=== PATIENT | male | born 1935 | race Caucasian/White ===

== ENCOUNTER 2018-06-19 14:02 | Inpatient (IN) ==
[2018-06-19] MEDS ORDERED: Ipratropium/Albuterol Neb 3 ML IH ONE (14:12)
[2018-06-19] MEDS ORDERED: methylPREDNISolone 125 MG/2 ML VIAL IVP ONE (14:12)
[2018-06-19] MEDS ORDERED: Azithromycin 250 MG TABLET PO ONE (14:21)
--- NOTE | 2018-06-19 14:21 | Emergency Department Note ---
Disposition Clinical Impression: Acute exacerbation of chronic obstructive airways disease, Elevated troponin Community acquired pneumonia Qualifiers: Laterality: unspecified laterality Qualified Code(s): J18.9 - Pneumonia, unspecified organism Disposition: Admitted As Inpatient Condition: Good Time of Disposition: 16:04 General Adult HPI - General Stated complaint: KEEGAN Time Seen by Provider: 06/19/18 14:05 Source: EMS Mode of arrival: ambulatory Limitations: no limitations Nursing Notes Reviewed: Yes Vital Signs Reviewed: Yes - History of Present Illness HPI Narrative: Patient reports 2 day history of increased cough and shortness of breath. Patient reports that he has been using his inhaler at home with no relief. He denies any fevers but does report occasional chills. He does have a history of COPD does not wear oxygen at home. EMS did provide patient with an albuterol treatment on the way in which he states did help with the shortness of breath. He denies any chest pain nausea vomiting or diarrhea. - Related Data Home Medications Medication Instructions Recorded Confirmed Albuterol Sulfate [Proair Hfa] 1 puff IH Q4-6H PRN 06/19/18 06/19/18 Chlorpheniramine/Dextromethorp 1 tab PO PER PKG DI PRN 06/19/18 06/19/18 [Coricidin Hbp Cough & Cold Tab] Cholecalciferol (D-3) [Vitamin D] 2,000 unit PO DAILY 06/19/18 06/19/18 Lisinopril [Zestril] 5 mg PO DAILY 06/19/18 06/19/18 Lovastatin [Mevacor] 20 mg PO DAILY 06/19/18 06/19/18 Meclizine HCl [Verticalm] 25 mg PO Q8H PRN 06/19/18 06/19/18 Multivitamin [One Daily 1 tab PO DAILY 06/19/18 06/19/18 Multivitamin] [place]-3 Fatty Acids/Fish Oil [Eql 1 cap PO DAILY 06/19/18 06/19/18 Fish Oil 1,200 mg Softgel] Allergies Allergy/AdvReac Type Severity Reaction Status Date / Time No Known Allergies Allergy Verified 10/24/15 07:21 All systems ED: reviewed and negative except as stated. Review of Systems: As Per HPI Constitutional: Denies: fever, chills ENT ED: Denies: congestion Cardiovascular: Denies: chest pain, palpitations, syncope Respiratory: Reports: cough, dyspnea, sputum production Gastrointestinal: Denies: abdominal pain, nausea, vomiting, diarrhea Neurological: Denies: weakness Past Medical History - Past Medical History Attestation: Yes The following information was validated with the patient. Source: patient Medical history: Reports: other (COPD) Physical Exam - General Limitations: no limitations General appearance: alert, in distress (Patient does appear to be short of breath. He is using his intercostal muscles to breathe.) - Head Head exam: atraumatic, normocephalic, normal inspection - Eye Eye exam: Present: normal appearance, PERRL, EOMI - ENT ENT exam: normal exam, normal oropharynx, mucous membranes moist - Neck Neck exam: Present: normal inspection, full ROM, trachea midline - Chest Chest inspection: Present: normal inspection, symmetric chest wall rise - Respiratory Respiratory exam: Present: respiratory distress, accessory muscle use, prolonged expiratory phase, other (Rhonchi throughout) - Cardiovascular Cardiovascular exam: Present: regular rate, normal rhythm, normal heart sounds - Abdominal Exam Abdominal exam: Present: soft, Non-Tender. Absent: tenderness, distention, guarding, rebound, rigidity - Extremities Exam Extremities exam: Present: normal inspection, full ROM, normal capillary refill. Absent: tenderness, pedal edema - Back Exam Back exam: Present: normal inspection, full ROM. Absent: tenderness - Neurological Exam Neurological exam: Present: alert, oriented X3 - Psychiatric Psychiatric exam: Present: normal affect, normal mood - Skin Skin exam: Present: warm, dry, intact, normal color Course Course Narrative: Patient presenting to the emergency department complaining of shortness of breath. Does have history of COPD. Does not wear oxygen at home. He is mentating appropriate but does appear to be in respiratory distress. Heart c rackles and rhonchi throughout. Chest x-ray was concerning for bilateral pneumonia. We will admit patient to the hospital on IV antibiotics for his pneumonia as well as COPD exacerbation. He was also given steroids while here. Vital Signs Pulse Rate 113 06/19/18 14:16 Respiratory Rate 22 06/19/18 14:16 Blood Pressure 150/84 06/19/18 14:16 O2 Sat by Pulse Oximetry 95 06/19/18 14:16 Temperature 98.9 F 06/19/18 14:20 Pulse Rate 113 06/19/18 14:20 Respiratory Rate 22 06/19/18 14:20 Blood Pressure 150/84 06/19/18 14:20 O2 Sat by Pulse Oximetry 95 06/19/18 15:03 Oxygen Delivery Oxygen Delivery Room Air Medical Decision Making - Medical Records Medical records reviewed: Yes I reviewed the patient's medical records. - Lab Data Lab results reviewed: Yes I reviewed the patient's lab results. Result diagrams: 06/19/18 14:12 06/19/18 14:12 Lab Results 06/19/18 06/19/18 06/19/18 Range/Units 14:12 14:12 14:12 WBC 18.3 H (4.3-11.1) K/mcL RBC 4.23 (4.19-5.50) M/mcL Hgb 13.8 (12.9-16.9) g/dL Hct 40.6 (37.5-50.1) % MCV 96.0 (83.0-100.0) fL MCH 32.6 (28.0-33.3) pg MCHC 34.0 (31.6-35.5) g/dL RDW 12.4 (11.5-14.5) % Plt Count 162 (140-400) K/mcL MPV 10.7 (9.4-12.4) fL Immature Gran % 0.9 (0-4) % Seg Neutrophils % 91.6 % Lymphocytes % 2.7 % Monocytes % 4.7 % Eosinophils % 0.0 % Basophils % 0.1 % Neutrophils # 16.8 H (1.6-8.9) K/mcL Lymphocytes # 0.5 L (0.6-4.6) K/mcL Monocytes # 0.9 (0.0-1.3) K/mcL Eosinophils # 0.0 (0.0-0.6) K/mcL Basophils # 0.0 (0.0-0.2) K/mcL PT (9.4-12.1) Seconds INR Sodium 137 (136-145) mEq/L Potassium 3.6 (3.5-5.1) mEq/L Chloride 103 (98-107) mEq/L Carbon Dioxide 22 L (23-29) mEq/L BUN 28 H (8-23) mg/dL Creatinine 1.31 H (0.70-1.30) mg/dL Est GFR ( Amer) > 60 (> 60) Est GFR (Non-Af Amer) 52 L (> 60) BUN/Creatinine Ratio 21 (6-26) Glucose 195 H (70-105) mg/dL Calculated Osmolality 295 (280-300) Lactic Acid (0.5-2.2) mmol/L Calcium 8.8 (8.6-10.3) mg/dL Troponin I 0.06 H* (< 0.04) ng/mL B-Natriuretic Peptide 372 H (Less than 100) pg/mL 06/19/18 06/19/18 Range/Units 14:21 14:37 WBC (4.3-11.1) K/mcL RBC (4.19-5.50) M/mcL Hgb (12.9-16.9) g/dL Hct (37.5-50.1) % MCV (83.0-100.0) fL MCH (28.0-33.3) pg MCHC (31.6-35.5) g/dL RDW (11.5-14.5) % Plt Count (140-400) K/mcL MPV (9.4-12.4) fL Immature Gran % (0-4) % Seg Neutrophils % % Lymphocytes % % Monocytes % % Eosinophils % % Basophils % % Neutrophils # (1.6-8.9) K/mcL Lymphocytes # (0.6-4.6) K/mcL Monocytes # (0.0-1.3) K/mcL Eosinophils # (0.0-0.6) K/mcL Basophils # (0.0-0.2) K/mcL PT 13.4 H (9.4-12.1) Seconds INR 1.2 Sodium (136-145) mEq/L Potassium (3.5-5.1) mEq/L Chloride (98-107) mEq/L Carbon Dioxide (23-29) mEq/L BUN (8-23) mg/dL Creatinine (0.70-1.30) mg/dL Est GFR ( Amer) (> 60) Est GFR (Non-Af Amer) (> 60) BUN/Creatinine Ratio (6-26) Glucose (70-105) mg/dL Calculated Osmolality (280-300) Lactic Acid 3.5 H (0.5-2.2) mmol/L Calcium (8.6-10.3) mg/dL Troponin I (< 0.04) ng/mL B-Natriuretic Peptide (Less than 100) pg/mL - Radiology Data Radiology results reviewed: Yes I reviewed the patient's radiology results. Chest X-Ray 06/19/18 14:12 IMPRESSION: Bilateral airspace changes, right worse than left, that are suspicious for infiltrates. Follow up to resolution is suggested. D/ / 06/19/2018 14:39:49 Светлана Guerrero MD / [facility] Interpreting Provider: Светлана Guerrero MD - EKG Data EKG #1 EKG attestation: Yes I reviewed and interpreted this EKG. EKG results narrative: Sinus tachycardia at a rate of 106. VA interval is 185. Castration is 135. QT is 355. QTC is 472. Does have occasional PVC noted. No significant change from previous EKG dated 05/10/2012. Does have a right bundle branch block. Critical Care Time Critical Care Time: Yes Total Critical Care Time: 35 Attestation: Medical care time 35 minutes managing patient's COPD exacerbation and pneumonia with elevated troponin. Attestation Statement - Attestation Attestation: Patient was seen with resident physician. I reviewed the history, physical, assessment and plan, and agree with the findings. I also personally evaluated this patient and had [id number] time with this patient. 83-year-old male presents emergency Department with worsening shortness of breath for the last 24-48 hours. Patient is a history of COPD, he does take breathing treatments at home. He says that the breathing is gotten particularly worse. He is not sure if he has had flu or please having COPD exacerbation or pneumonia. Denies fevers or chills. No chest pain. He is short of breath. With increased work of breathing. Review of systems as above remainder negative. Physical exam vital signs temperature tachycardia but the pulse ox is 95% on room air. ENT is unremarkable. Heart regular rhythm and rate. Lungs diffuse crackles and wheezing heard throughout with increased work of breathing and rapid rate. Abdomen is soft and nontender. Extremities are unremarkable. Neurologically intact. Skin no rashes. Psych normal. ED course. We will do 3 breathing treatments and some steroids. We will also do workup for cardiopulmonary issues. Because of the initial presentation and increased work of breathing anticipate we will need to admit this patient for additional evaluation and treatment. I once we have the results of the lab testing we can contact hospitalist service and arrange for admission. Patient's chest x-ray demonstrated bilateral pneumonia. Labs showed elevated white blood cell count slightly elevated troponin and BNP. Patient was started on IV antibiotics, he did have improved breathing throughout his stay. We contacted the hospitalist service to arrange for admission. I agree with the resident physician assessment and plan. The patient remained hemodynamically stable while in the emergency department.
[2018-06-19 14:58] LABS: Basophils % 0.1 %; Hematocrit 40.6 % (37.5-50.1); Hemoglobin 13.8 g/dL (12.9-16.9); Immature Granulocytes % 0.9 % (0-4); Lymphocytes # 0.5 K/mcL (0.6-4.6); Lymphocytes % 2.7 %; Mean Corpuscular Hemoglobin 32.6 pg (28.0-33.3); Mean Platelet Volume 10.7 fL (9.4-12.4); Monocytes # 0.9 K/mcL (0.0-1.3); Monocytes % 4.7 %; Neutrophils # 16.8 K/mcL (1.6-8.9); Platelet Count 162 K/mcL (140-400); Red Blood Count 4.23 M/mcL (4.19-5.50); Red Cell Distribution Width 12.4 % (11.5-14.5); Segmented Neutrophils % 91.6 %
[2018-06-19 15:08] LABS: INR 1.2; Prothrombin Time 13.4 Seconds (9.4-12.1)
[2018-06-19 15:19] LABS: BUN/Creatinine Ratio 21 (6-26); Blood Urea Nitrogen 28 mg/dL (8-23); Calcium 8.8 mg/dL (8.6-10.3); Carbon Dioxide 22 mEq/L (23-29); Chloride 103 mEq/L (98-107); Glucose 195 mg/dL (70-105); Osmolality,Calculated 295 (280-300); Potassium 3.6 mEq/L (3.5-5.1); Sodium 137 mEq/L (136-145); eGFR For Non-African Americans 52 (> 60)
[2018-06-19 15:26] LABS: Troponin I 0.06 ng/mL (< 0.04)
[2018-06-19] MEDS ORDERED: Naloxone 0.4 MG/ML INJ IVP PRN (15:27)
[2018-06-19] MEDS ORDERED: cefTRIAXone 1,000 MG in Water for inj. (sterile) 20 ML 10 ML IVP ONE (15:29)
[2018-06-19] MEDS ORDERED: 0.9 % Sodium Chloride 1,000 ML IVC SCH ×3 (15:30→20:45)
[2018-06-19] MEDS: Ipratropium/Albuterol Neb 3 ML IH SCH ×3 (15:45→23:07)
--- NOTE | 2018-06-19 16:03 | Internal Med History&Physical ---
Date of Encounter: 06/19/18 Time of Encounter: 15:30 Internal Medicine - H&P: HPI Chief complaint: SOB Admitted From: Home History of present illness: Mr. Guthrie is a 83 year old male with past medical history of COPD (PFT 09/2015 FEV1 42%), HTN, HLD, presented to the ED with 4 day history of shortness of breath. Associated cough with whitish sputum production and chills. Denies any chest pain, palpitation, orthopnea, PND, LE swelling. Was sick with flu-like symptoms for 3-4 days prior to the onset of productive cough and SOB. No fever but chills reported as above. Denies any abdominal pain, diarrhea, dysuria, joint pain, or rash. Up-to-date on both flu shot and pneumonia vaccinations. In the ED, he was afebrile, tachycardic 113 but with normal BP. Saturating well on RA. Labs showed leukocytosis and lactic acid of 3.5. Troponin 0.06, EKG sinus tachycardia without STT changes. Cr 1.31 (baseline 1.25). Chest x-ray revealed bilateral airspace changes R>L concerning for PNA. Patient was given oral Zithromax, IV Solu-Medrol, bronchodilators, and admitted for further management. Past Med Surg Social Fam HX - Past Medical History Medical history: COPD, hyperlipidemia, hypertension, kidney stones, other Additional medical history: BPH Psychiatric history: no psych history - Past Surgical History Additional surgical history: laser surgery on prostate - Social History Smoking Status: Former smoker Smokeless Tobacco Status: No Alcohol use: none Drug use: none - Family History Mother History Unknown: Yes Living Status: Father History Unknown: Yes Living Status: Internal Medicine - H&P: Meds Albuterol Sulfate [Proair Hfa] 1 puff IH Q4-6H PRN 06/19/18 [History] Chlorpheniramine/Dextromethorp [Coricidin Hbp Cough & Cold Tab] 1 tab PO PER PKG DI PRN 06/19/18 [History] Cholecalciferol (D-3) [Vitamin D] 2,000 unit PO DAILY 06/19/18 [History] Lisinopril [Zestril] 5 mg PO DAILY 06/19/18 [History] Lovastatin [Mevacor] 20 mg PO DAILY 06/19/18 [History] Meclizine HCl [Verticalm] 25 mg PO Q8H PRN 06/19/18 [History] Multivitamin [One Daily Multivitamin] 1 tab PO DAILY 06/19/18 [History] [place]-3 Fatty Acids/Fish Oil [Eql Fish Oil 1,200 mg Softgel] 1 cap PO DAILY 06/19/18 [History] Allergy/AdvReac Type Severity Reaction Status Date / Time No Known Allergies Allergy Verified 10/24/15 07:21 All Systems PM: A 10-system review of systems was performed and is negative for pertinent findings except as documented above in the HPI. - Constitutional Vitals: Temp Pulse Resp BP Pulse Ox 98.9 F 113 22 150/84 95 06/19/18 14:20 06/19/18 14:20 06/19/18 14:20 06/19/18 14:20 06/19/18 15:03 Exam: General: Alert and oriented, mild respiratory distress. HEENT:EOM, pupils equal, round and reactive. Cardiovascular:Normal S1 & S2, No JVD. Pulse regular but tachycardic. No LE edema Lungs: Scattered rhonchi/wheezes bilaterally Abdomen:Soft, non-tender, no rigidity. Extremities:No deformity or swelling Neurological:Normal cognition and motor skills. Non-focal Skin:Normal color, no rash, no lesions. Pulses:Carotid and radial pulses normal +2. Rest of the physical exam is non contributory Internal Med - H&P Results - Labs CBC & Chem 7: 06/19/18 14:12 06/19/18 14:12 Labs: Short CBC 06/19/18 Range/Units 14:12 WBC 18.3 H (4.3-11.1) K/mcL Hgb 13.8 (12.9-16.9) g/dL Hct 40.6 (37.5-50.1) % Plt Count 162 (140-400) K/mcL Neutrophils # 16.8 H (1.6-8.9) K/mcL BMP 06/19/18 14:12 Sodium 137 Potassium 3.6 Chloride 103 Carbon Dioxide 22 L BUN 28 H Creatinine 1.31 H Glucose 195 H Calcium 8.8 Cardiac Enzymes 06/19/18 Range/Units 14:12 Troponin I 0.06 H* (< 0.04) ng/mL - Impressions ITS Impressions Chest X-Ray 06/19/18 14:12 IMPRESSION: Bilateral airspace changes, right worse than left, that are suspicious for infiltrates. Follow up to resolution is suggested. D/ / 06/19/2018 14:39:49 Светлана Guerrero MD / [facility] Interpreting Provider: Светлана Guerrero MD - Assessment and plan (1) Sepsis Current Visit: Yes Status: Suspected Assessment and plan: tachycardic, tachypneic on presentation. Also has leukocytosis. 3/4 SIRS source: PNA, lactic acid 3.5 was given PO Azithromycin in the ED, will add IV Rocephin blood cultures prior to abx 1L fluid bolus, repeat lactic acid after IVF Qualifiers: Sepsis type: sepsis due to unspecified organism Qualified Code(s): A41.9 - Sepsis, unspecified organism (2) Community acquired pneumonia Current Visit: Yes Status: Acute Assessment and plan: in addition to the findings above, CXR shows bilateral airspace opacities R>L abx as above sputum culture urine legionella/strep ag bronchodilators Qualifiers: Laterality: unspecified laterality Qualified Code(s): J18.9 - Pneumonia, unspecified organism (3) Troponin level elevated Current Visit: Yes Status: Acute Assessment and plan: Likely to demand ischemia in the absence of anginal symptoms or ischemic changes on EKG troponin 0.06, trend continue ASA, statin check a1c, lipid panel echocardiogram (4) COPD exacerbation Current Visit: Yes Status: Acute Assessment and plan: severe COPD per PFT in 2016 steroids, bronchodilators abx as above may need to have ICS at the time of discharge (5) HTN (hypertension) Current Visit: Yes Status: Chronic Assessment and plan: hold off on lisinopril given suspected sepsis Qualifiers: Hypertension type: essential hypertension Qualified Code(s): I10 - Essential (primary) hypertension (6) DVT prophylaxis Current Visit: Yes Status: Acute Assessment and plan: SQ heparin - Time Spent With Patient Total time spent is greater than 50% in coordination of care (as documented) at patient's floor/unit and/or counseling patient: Greater than 35 minutes
[2018-06-19] MEDS ORDERED: Aspirin 81 MG TAB.CHEW PO ONE (16:11)
[2018-06-19] MEDS: 0.9 % Sodium Chloride 1,000 ML IVC SCH (18:04)
[2018-06-19] MEDS: *HR* Heparin 5,000 UNIT/ML VIAL SQ SCH (18:04)
[2018-06-19] MEDS ORDERED: 0.9 % Sodium Chloride 1,000 ML IVC ONE (21:20)
[2018-06-19 21:53] LABS: ABG Base Excess -7 mEq/L (-2 to 3); ABG HCO3 16 mEq/L (21-27); ABG Oxygen Saturation 95 % (95-98); ABG PCO2 27 mmHg (35-45); ABG PH 7.39 pH Units (7.32-7.45); ABG PO2 73 mmHg (85-104); ABG TCO2 17 mEq/L (20-26)
[2018-06-19 22:01] LABS: Adenovirus Not Detected (Not Detect); Bordetella Pertussis Not Detected (Not Detect); Chlamydophila pneumoniae Not Detected (Not Detect); Coronavirus 229E Not Detected (Not Detect); Coronavirus HKU1 Not Detected (Not Detect); Coronavirus NL63 Not Detected (Not Detect); Coronavirus OC43 Not Detected (Not Detect); Human Metapneumovirus Not Detected (Not Detect); Human Rhinovirus/Enterovirus DETECTED (Not Detect); Influenza A Subtype 2009 H1 Not Detected (Not Detect); Influenza A Untypeable Not Detected (Not Detect); Influenza B Not Detected (Not Detect); Mycoplasma pneumoniae Not Detected (Not Detect); Parainfluenza Virus 1 Not Detected (Not Detect); Parainfluenza Virus 2 Not Detected (Not Detect); Parainfluenza Virus 3 Not Detected (Not Detect); Parainfluenza Virus 4 Not Detected (Not Detect); Respiratory Syncytial Virus Not Detected (Not Detect)
[2018-06-20] MEDS: 0.9 % Sodium Chloride 1,000 ML IVC SCH (02:21)
[2018-06-20] MEDS: Ipratropium/Albuterol Neb 3 ML IH SCH ×5 (03:55→20:04)
[2018-06-20 05:45] LABS: Basophils % 0.1 %; Hematocrit 32.7 % (37.5-50.1); Immature Granulocytes % 1.1 % (0-4); Lymphocytes # 0.4 K/mcL (0.6-4.6); Lymphocytes % 2.7 %; Mean Corpuscular HGB Conc 35.2 g/dL (31.6-35.5); Mean Corpuscular Hemoglobin 33.2 pg (28.0-33.3); Mean Corpuscular Volume 94.5 fL (83.0-100.0); Mean Platelet Volume 10.8 fL (9.4-12.4); Monocytes # 0.6 K/mcL (0.0-1.3); Neutrophils # 13.4 K/mcL (1.6-8.9); Platelet Count 136 K/mcL (140-400); Red Blood Count 3.46 M/mcL (4.19-5.50); Red Cell Distribution Width 12.6 % (11.5-14.5); Segmented Neutrophils % 92.1 %
[2018-06-20] MEDS: *HR* Heparin 5,000 UNIT/ML VIAL SQ SCH ×2 (05:45→18:27)
[2018-06-20 05:47] LABS: Hemoglobin 11.5 g/dL (12.9-16.9)
[2018-06-20 06:03] LABS: BUN/Creatinine Ratio 21 (6-26); Blood Urea Nitrogen 21 mg/dL (8-23); Calcium 8.3 mg/dL (8.6-10.3); Carbon Dioxide 20 mEq/L (23-29); Chloride 110 mEq/L (98-107); Glucose 197 mg/dL (70-105); Magnesium 1.9 mg/dL (1.6-2.6); Osmolality,Calculated 294 (280-300); Potassium 3.2 mEq/L (3.5-5.1); Sodium 138 mEq/L (136-145); eGFR For Non-African Americans > 60 (> 60)
[2018-06-20 06:45] LABS: Estimated Average Glucose 123 mg/dl; Hemoglobin A1C 5.9 %
[2018-06-20] MEDS: MethylPREDNISolone 40 MG/ML VIAL IVP SCH ×2 (08:44→16:36)
[2018-06-20] MEDS: Cholecalciferol (D-3) 1,000 UNIT TABLET PO SCH (08:44)
[2018-06-20] MEDS: Aspirin Enteric Coated 81 MG Tablet PO SCH (08:44)
--- NOTE | 2018-06-20 12:16 | Internal Med Progress Note ---
Hospitalist Progress Note - Encounter Date of Encounter: 06/20/18 Time of Encounter: 10:00 - Subjective Interval History: Overnight event noted. Lactic acid initially went up as high as 4.7 but normalized this AM with additional fluid boluses. States that his SOB also improved. HR normalized and remained afebrile. - Exam Vitals: Temp Pulse Resp BP Pulse Ox 97.4 F L 92 16 125/70 92 06/20/18 11:02 06/20/18 11:02 06/20/18 11:02 06/20/18 11:02 06/20/18 11:02 Exam: General: Alert and oriented, not in distress Cardiovascular:Normal S1 & S2, No JVD. Pulse regular, normal rate. No LE edema Lungs: improving rhonchi/wheezes bilaterally Abdomen:Soft, non-tender, no rigidity. Extremities:No deformity or swelling Neurological:Normal cognition and motor skills. Non-focal - Assessment and Plan (1) Sepsis Current Visit: Yes Status: Suspected Assessment and Plan: tachycardic, tachypneic on presentation. Also has leukocytosis. 3/4 SIRS source: PNA, lactic acid 3.5 -> normalized after fluid resuscitation continue IV Vimal/azithromax, D2. WBC improving follow up on blood cultures (2) Community acquired pneumonia Current Visit: Yes Status: Acute Assessment and Plan: in addition to the findings above, CXR shows bilateral airspace opacities R>L abx as above RIP +ve for entero/rhinovirus urine legionella/strep ag -ve, flu -ve sputum culture pending bronchodilators (3) COPD exacerbation Current Visit: Yes Status: Acute Assessment and Plan: severe COPD per PFT in 2016 steroids, bronchodilators abx as above may need to have ICS at the time of discharge (4) Troponin level elevated Current Visit: Yes Status: Acute Assessment and Plan: Likely to demand ischemia in the absence of anginal symptoms or ischemic changes on EKG troponin 0.06-> 0.05 continue ASA, statin a1c 5.9, lipid panel unremarkable echo showed normal EF and wall motion (5) HTN (hypertension) Current Visit: Yes Status: Chronic Assessment and Plan: hold off on lisinopril given suspected sepsis and normal BP (6) DVT prophylaxis Current Visit: Yes Status: Acute Assessment and Plan: SQ heparin - Time Spent with Patient Total time spent is greater than 50% in coordination of care (as documented) at patient's floor/unit and/or counseling patient: Plan of Care Discussed with: patient Internal Medicine: Result - Labs CBC & Chem 7: 06/20/18 05:00 06/20/18 05:00 Labs: Short CBC 06/19/18 06/20/18 Range/Units 14:12 05:00 WBC 18.3 H 14.6 H (4.3-11.1) K/mcL Hgb 13.8 11.5 L D (12.9-16.9) g/dL Hct 40.6 32.7 L (37.5-50.1) % Plt Count 162 136 L (140-400) K/mcL Neutrophils # 16.8 H 13.4 H (1.6-8.9) K/mcL BMP 06/19/18 06/20/18 14:12 05:00 Sodium 137 138 Potassium 3.6 3.2 L Chloride 103 110 H Carbon Dioxide 22 L 20 L BUN 28 H 21 Creatinine 1.31 H 1.01 Glucose 195 H 197 H Calcium 8.8 8.3 L Cardiac Enzymes 06/19/18 06/19/18 Range/Units 14:12 20:09 Troponin I 0.06 H* 0.05 H* (< 0.04) ng/mL - ABG Interpretation ABG results: ABG ABG pH 7.39 pH Units (7.32-7.45) 06/19/18 21:50 ABG pCO2 27 mmHg (35-45) L 06/19/18 21:50 ABG pO2 73 mmHg (85-104) L 06/19/18 21:50 ABG O2 Saturation 95 % (95-98) 06/19/18 21:50 PT/INR, D-dimer PT 13.4 Seconds (9.4-12.1) H 06/19/18 14:21 - Impressions Impressions Chest X-Ray 06/19/18 14:12 IMPRESSION: Bilateral airspace changes, right worse than left, that are suspicious for infiltrates. Follow up to resolution is suggested. D/ / 06/19/2018 14:39:49 [facility]лан[facility] Inter[facility] Provider: Светлана Guerrero MD Echocardiogram 06/20/18 07:00 Impressions: LVEF 60-65%. Normal LV chamber size, wall thickness and systolic function. Indeterminate diastolic function. Normal right ventricular structure and function. No significant valvular dysfunction. Mild pulmonary hypertension. The aortic root is mildly dilated. Cannot rule out aneurysm of sinus of Valsalva due to suboptimal Echo windows. Consider IVY if clinically indicated. Left Ventricular Wall Motion: Rest Echo Findings All wall segments showed normal motion. Findings: Study Quality * Technically sub-optimal due to poor echocardiographic windows. ECG Findings * Normal sinus rhythm. Left Ventricle * LVEF 60-65%. * Normal LV chamber size, wall thickness and systolic function. * Indeterminate diastolic function. * Definity echo contrast was not used. Right Ventricle * Normal right ventricular structure and function. Left Atrium * Normal left atrial size. Right Atrium * Normal right atrial size. Interatrial Septum * Interatrial septum not well evaluated. Aortic Valve * Aortic valve not well visualized. * No aortic stenosis. * No aortic regurgitation. Mitral Valve * Mildly calcified mitral valve leaflets. * No mitral stenosis. * No mitral regurgitation. Tricuspid Valve * Tricuspid valve not well visualized. * No tricuspid stenosis. * Estimated RVSP is 46 mmHg. * Estimated RA pressure is 8 mmHg. * Mild pulmonary hypertension. Pulmonic Valve * Pulmonic valve is not well visualized. * No pulmonic stenosis. * No pulmonic regurgitation. Aorta * The aortic root is mildly dilated. Cannot rule out aneurysm of sinus of valsalva of non-coronary cusp. * The aortic root is 4.1 cm. Pericardium * The pericardium appears normal. IVC * Normal IVC dimensions and inspiratory collapse. Consult Discharge Plan - Plan Referrals: Sampson Montoya MD [Primary Care Provider] - 06/24/18 1:15 pm (1) Sepsis Qualifiers: Sepsis type: sepsis due to unspecified organism Qualified Code(s): A41.9 - Sepsis, unspecified organism (2) Community acquired pneumonia Qualifiers: Laterality: unspecified laterality Qualified Code(s): J18.9 - Pneumonia, unspecified organism (5) HTN (hypertension) Qualifiers: Hypertension type: essential hypertension Qualified Code(s): I10 - Essential (primary) hypertension
[2018-06-20] MEDS: Azithromycin 500 MG in D5% in Water 250 ML IVPB SCH (14:52)
[2018-06-20] MEDS: Potassium Chloride Elixir 20 MEQ/15 ML UDC PO SCH ×3 (15:56→20:38)
[2018-06-20] MEDS: cefTRIAXone 1,000 MG in Water for inj. (sterile) 20 ML 10 ML IVP SCH (17:48)
[2018-06-20] MEDS ORDERED: Potassium Chloride Elixir 20 MEQ/15 ML UDC PO SCH (21:45)
[2018-06-21] MEDS: Ipratropium/Albuterol Neb 3 ML IH SCH ×7 (00:25→23:25)
[2018-06-21] MEDS: MethylPREDNISolone 40 MG/ML VIAL IVP SCH ×2 (06:00→18:25)
[2018-06-21] MEDS: *HR* Heparin 5,000 UNIT/ML VIAL SQ SCH ×2 (06:05→18:25)
[2018-06-21] MEDS: Aspirin Enteric Coated 81 MG Tablet PO SCH (10:23)
[2018-06-21] MEDS: cefTRIAXone 1,000 MG in Water for inj. (sterile) 20 ML 10 ML IVP SCH (10:23)
[2018-06-21] MEDS: Cholecalciferol (D-3) 1,000 UNIT TABLET PO SCH (10:23)
--- NOTE | 2018-06-21 10:38 | Internal Med Progress Note ---
Hospitalist Progress Note - Encounter Date of Encounter: 06/21/18 Time of Encounter: 10:35 - Subjective Interval History: Seen and examined at bedside today. Continue to have dyspnea with exertion and wheezing. Was noted to have difficulty ambulating around the room without O2, SPO2 dropped to 88% and his dyspnea worsened. High risk for d/c at this time. Continue to monitor over night. - Exam Vitals: Temp Pulse Resp BP Pulse Ox 97.9 F 97 16 150/75 92 06/21/18 07:01 06/21/18 07:01 06/21/18 07:01 06/21/18 07:01 06/21/18 07:01 Exam: General: Alert and oriented, not in distress at rest Cardiovascular:Normal S1 & S2, No JVD. Pulse regular, normal rate. No LE edema Lungs: persistent B/L expiratory wheezing with dimished breath sounds throughout Abdomen:Soft, non-tender, no rigidity. Extremities:No deformity or swelling Neurological:Normal cognition and motor skills. Non-focal - Assessment and Plan (1) Sepsis Current Visit: Yes Status: Suspected Assessment and Plan: tachycardic, tachypneic on presentation. Also has leukocytosis. 3/4 SIRS source: PNA, lactic acid 3.5 -> normalized after fluid resuscitation continue IV Vimal/azithromax, D2. WBC improving follow up on blood cultures 06/21--Sepsis 2/2 viral PNA. Positive for Rhino virus. Clinically, he remains stable, no fevers over night. During my assessment he was noted to have dyspnea with exertion and hypoxia with SPO2 of 88% with ambulation without O2. I do not believe that he would be safe for d/c today. Continue IV ABX, aerosols and IV steroids (2) Community acquired pneumonia Current Visit: Yes Status: Acute Assessment and Plan: in addition to the findings above, CXR shows bilateral airspace opacities R>L abx as above RIP +ve for entero/rhinovirus urine legionella/strep ag -ve, flu -ve sputum culture preliminary GNR continue plan as above (3) COPD exacerbation Current Visit: Yes Status: Acute Assessment and Plan: severe COPD per PFT in 2016 continue steroids, bronchodilators abx as above may need to have ICS at the time of discharge not ready for d/c today d/t hypoxia and dyspnea with exertion attempt to quality for home O2 (4) HTN (hypertension) Current Visit: Yes Status: Chronic Assessment and Plan: HTN this a.m resume home dose AKIKO I (5) Troponin level elevated Current Visit: Yes Status: Acute Assessment and Plan: Likely to demand ischemia in the absence of anginal symptoms or ischemic changes on EKG troponin 0.06-> 0.05 continue ASA, statin a1c 5.9, lipid panel unremarkable echo showed normal EF and wall motion 06/21--remains CP free, no events on tele (6) DVT prophylaxis Current Visit: Yes Status: Acute Assessment and Plan: Continue SQ heparin - Time Spent with Patient Total time spent is greater than 50% in coordination of care (as documented) at patient's floor/unit and/or counseling patient: less than 15 minutes Plan of Care Discussed with: patient Internal Medicine: Result - Labs CBC & Chem 7: 06/20/18 05:00 06/20/18 05:00 - ABG Interpretation ABG results: ABG ABG pH 7.39 pH Units (7.32-7.45) 06/19/18 21:50 ABG pCO2 27 mmHg (35-45) L 06/19/18 21:50 ABG pO2 73 mmHg (85-104) L 06/19/18 21:50 ABG O2 Saturation 95 % (95-98) 06/19/18 21:50 PT/INR, D-dimer PT 13.4 Seconds (9.4-12.1) H 06/19/18 14:21 - Impressions Impressions Echocardiogram 06/20/18 07:00 Impressions: LVEF 60-65%. Normal LV chamber size, wall thickness and systolic function. Indeterminate diastolic function. Normal right ventricular structure and function. No significant valvular dysfunction. Mild pulmonary hypertension. The aortic root is mildly dilated. Cannot rule out aneurysm of sinus of Valsalva due to suboptimal Echo windows. Consider IVY if clinically indicated. Left Ventricular Wall Motion: Rest Echo Findings All wall segments showed normal motion. Findings: Study Quality * Technically sub-optimal due to poor echocardiographic windows. ECG Findings * Normal sinus rhythm. Left Ventricle * LVEF 60-65%. * Normal LV chamber size, wall thickness and systolic function. * Indeterminate diastolic function. * Definity echo contrast was not used. Right Ventricle * Normal right ventricular structure and function. Left Atrium * Normal left atrial size. Right Atrium * Normal right atrial size. Interatrial Septum * Interatrial septum not well evaluated. Aortic Valve * Aortic valve not well visualized. * No aortic stenosis. * No aortic regurgitation. Mitral Valve * Mildly calcified mitral valve leaflets. * No mitral stenosis. * No mitral regurgitation. Tricuspid Valve * Tricuspid valve not well visualized. * No tricuspid stenosis. * Estimated RVSP is 46 mmHg. * Estimated RA pressure is 8 mmHg. * Mild pulmonary hypertension. Pulmonic Valve * Pulmonic valve is not well visualized. * No pulmonic stenosis. * No pulmonic regurgitation. Aorta * The aortic root is mildly dilated. Cannot rule out aneurysm of sinus of valsalva of non-coronary cusp. * The aortic root is 4.1 cm. Pericardium * The pericardium appears normal. IVC * Normal IVC dimensions and inspiratory collapse. Consult Discharge Plan - Plan Referrals: Sampson Montoya MD [Primary Care Provider] - 06/24/18 1:15 pm (1) Sepsis Qualifiers: Sepsis type: sepsis due to unspecified organism Qualified Code(s): A41.9 - S epsis, unspecified organism (2) Community acquired pneumonia Qualifiers: Laterality: unspecified laterality Qualified Code(s): J18.9 - Pneumonia, unspecified organism (4) HTN (hypertension) Qualifiers: Hypertension type: essential hypertension Qualified Code(s): I10 - Essential (primary) hypertension
[2018-06-21 11:14] LABS: Mean Corpuscular HGB Conc 33.8 g/dL (31.6-35.5); Mean Corpuscular Hemoglobin 32.6 pg (28.0-33.3); Mean Corpuscular Volume 96.3 fL (83.0-100.0); Mean Platelet Volume 10.6 fL (9.4-12.4); Platelet Count 187 K/mcL (140-400); Red Blood Count 4.05 M/mcL (4.19-5.50); Red Cell Distribution Width 12.7 % (11.5-14.5)
[2018-06-21 11:22] LABS: Hemoglobin 13.2 g/dL (12.9-16.9)
[2018-06-21 11:38] LABS: BUN/Creatinine Ratio 22 (6-26); Blood Urea Nitrogen 22 mg/dL (8-23); Calcium 9.1 mg/dL (8.6-10.3); Carbon Dioxide 20 mEq/L (23-29); Chloride 110 mEq/L (98-107); Glucose 216 mg/dL (70-105); Osmolality,Calculated 300 (280-300); Potassium 4.2 mEq/L (3.5-5.1); Sodium 140 mEq/L (136-145); eGFR For Non-African Americans > 60 (> 60)
[2018-06-21] MEDS: Azithromycin 500 MG in D5% in Water 250 ML IVPB SCH (15:05)
[2018-06-22] MEDS: Ipratropium/Albuterol Neb 3 ML IH SCH ×3 (03:56→11:36)
[2018-06-22 05:35] LABS: Hematocrit 36.5 % (37.5-50.1); Hemoglobin 12.7 g/dL (12.9-16.9); Mean Corpuscular HGB Conc 34.8 g/dL (31.6-35.5); Mean Corpuscular Hemoglobin 32.6 pg (28.0-33.3); Mean Corpuscular Volume 93.6 fL (83.0-100.0); Mean Platelet Volume 10.8 fL (9.4-12.4); Platelet Count 188 K/mcL (140-400)
[2018-06-22 05:54] LABS: BUN/Creatinine Ratio 24 (6-26); Blood Urea Nitrogen 25 mg/dL (8-23); Calcium 9.5 mg/dL (8.6-10.3); Carbon Dioxide 24 mEq/L (23-29); Chloride 107 mEq/L (98-107); Glucose 179 mg/dL (70-105); Osmolality,Calculated 297 (280-300); Sodium 139 mEq/L (136-145); eGFR For Non-African Americans > 60 (> 60)
[2018-06-22] MEDS: *HR* Heparin 5,000 UNIT/ML VIAL SQ SCH (06:33)
[2018-06-22] MEDS: MethylPREDNISolone 40 MG/ML VIAL IVP SCH (06:33)
[2018-06-22 07:00] VITALS: BP 143/78
[2018-06-22] MEDS: Aspirin Enteric Coated 81 MG Tablet PO SCH (09:07)
[2018-06-22] MEDS: Cholecalciferol (D-3) 1,000 UNIT TABLET PO SCH (09:07)
[2018-06-22] MEDS: cefTRIAXone 1,000 MG in Water for inj. (sterile) 20 ML 10 ML IVP SCH (09:07)
--- NOTE | 2018-06-22 10:23 | Discharge Summary ---
- NOTES TO OUTPATIENT PROVIDER Notes to Outpatient Provider: BASIC OUTPATIENT F/U Orders not resulted at time of discharge: Pending orders 06/19/18 15:57 Culture,Blood [] Stat 06/19/18 21:55 Sputum Culture [Culture,Sputum with Gram Stain] [] Stat Date of Encounter: 06/22/18 Time of Encounter: 10:20 - Discharge Diagnosis (1) Sepsis Priority: Primary Status: Suspected Qualifiers: Sepsis type: sepsis due to unspecified organism Qualified Code(s): A41.9 - Sepsis, unspecified organism (2) Community acquired pneumonia Priority: Secondary Status: Acute Qualifiers: Laterality: unspecified laterality Qualified Code(s): J18.9 - Pneumonia, unspecified organism (3) COPD exacerbation Priority: Secondary Status: Acute (4) HTN (hypertension) Priority: Secondary Status: Chronic Qualifiers: Hypertension type: essential hypertension Qualified Code(s): I10 - Essential (primary) hypertension (5) Troponin level elevated Priority: Secondary Status: Acute (6) DVT prophylaxis Priority: Secondary Status: Acute Hospital course: Mr. Guthrie is a 83 year old male was admitted and treated for community- acquired pneumonia with positive rhinovirus. Additionally, sputum cultures with preliminary gram-negative rods with scant amount. Initially the patient presented with sepsis including tachycardia, tachypnea and leukocytosis as well as elevated lactic acid. Throughout stay has been receiving azithromycin and ceftriaxone as well as steroids and respiratory status has improved. He is qualified for home O2 and was able to ambulate down the hallway earlier this morning with little difficulty. Being discharged today with 70 course of Keflex and oral steroids and being sent home. He has been instructed to continue antibiotics until course is finished and continue with supportive care. The patient is very adamant about discharge and is willing to go home today. He reports that he does not have a long distance ambulation home and his daughter is at bedside reports she will be with him [id number] to assist in caring for him. He has been instructed to follow-up with PCP within 1 week of discharge. Discharge discussed with: patient, family, nurse - Time Spent with Patient Total time spent providing and/or coordinating discharge services: Less than 30 minutes - Discharge Medications Prescriptions: cephALEXin [Keflex] 500 mg PO BID 7 Days #14 capsule predniSONE [PredniSONE] 40 mg PO DAILY 5 Days #10 tablet Home Medications: Albuterol Sulfate [Proair Hfa] 1 puff IH Q4-6H PRN 06/19/18 [History] Chlorpheniramine/Dextromethorp [Coricidin Hbp Cough & Cold Tab] 1 tab PO PER PKG DI PRN 06/19/18 [History] Cholecalciferol (D-3) [Vitamin D] 2,000 unit PO DAILY 06/19/18 [History] Lisinopril [Zestril] 5 mg PO DAILY 06/19/18 [History] Lovastatin [Mevacor] 20 mg PO DAILY 06/19/18 [History] Meclizine HCl [Verticalm] 25 mg PO Q8H PRN 06/19/18 [History] Multivitamin [One Daily Multivitamin] 1 tab PO DAILY 06/19/18 [History] [place]-3 Fatty Acids/Fish Oil [Eql Fish Oil 1,200 mg Softgel] 1 cap PO DAILY 06/19/18 [History] cephALEXin [Keflex] 500 mg PO BID 7 Days #14 capsule 06/22/18 [Rx] predniSONE [PredniSONE] 40 mg PO DAILY 5 Days #10 tablet 06/22/18 [Rx] Allergies/Adverse Reactions: Allergy/AdvReac Type Severity Reaction Status Date / Time No Known Allergies Allergy Verified 10/24/15 07:21 Date of admission: 06/20/18 17:20 Primary care physician: Sampson Montoya MD Consults: 06/19/18 15:28 Consult to Occupational Therapy [CONS] Routine Comment: Evaluate, develop and implement POC Reason for Consult: PNA, deconditioning Does patient have active BEDREST order?: No Is patient medically & hemodynamically stable?: Yes Consult to Physical Therapy [CONS] Routine Comment: Evaluate, develop and implement POC Reason for Consult: PNA, deconditioning Does patient have active BEDREST order?: No Is patient medically & hemodynamically stable?: Yes 06/19/18 21:19 Consult to Respiratory Therapy [CONS] Routine Reason for Consult: Please add flutter valve to patient's breathing txs Call Completed: Yes Discharging clinician: Rome Samuels Anticipated date of discharge: 06/22/18 - Constitutional Vitals: Temp Pulse Resp BP Pulse Ox 97.9 F 90 16 143/78 95 06/22/18 06:59 06/22/18 06:59 06/22/18 07:41 06/22/18 06:59 06/22/18 07:41 General appearance: Present: A&O X 3 Exam: General: Alert and oriented, not in distress at rest Cardiovascular:Normal S1 & S2, No JVD. Pulse regular, normal rate. No LE edema Lungs: persistent no longer having expiratory wheezing, clear/diminished breath sounds, Abdomen:Soft, non-tender, no rigidity. Extremities:No deformity or swelling Neurological:Normal cognition and motor skills. Non-focal - Patient Status Disposition: Home, Self-Care Condition: Good Functional capacity at discharge: independent ambulation Overall status at discharge: patient is not back to baseline - Discharge Instructions Instructions: Chronic Obstructive Pulmonary Disease (DC), Pneumonia (DC) Follow Up With: Sampson Montoya MD [Primary Care Provider] - 06/24/18 1:15 pm Forms: ED Satisfaction Letter Additional Instructions: Call [facility] when you get home to have your equipment delivered. [phone] - Diet and Activity Activity: increase activity as tolerated, resume usual activities as tolerated, wear oxygen at all times Diet: diabetic diet, low fat, low cholesterol, low salt diet
--- NOTE | 2018-06-22 12:41 | Physician Discharge Referral ---
Addendum entered and electronically signed by Rome Samuels 06/23/18 08:36: Addendum entered and electronically signed by Rome Samuels 06/22/18 14:18: Update patient needs PT/OT and nursing Original Note: Home Health/Hosp Referral Info Transfer to: Home Health Provider in Charge Post Discharge: PCP - Diagnosis (1) Sepsis Priority: Primary Status: Suspected (2) Community acquired pneumonia Priority: Secondary Status: Acute (3) COPD exacerbation Priority: Secondary Status: Acute (4) HTN (hypertension) Priority: Secondary Status: Chronic (5) Troponin level elevated Priority: Secondary Status: Acute (6) DVT prophylaxis Priority: Secondary Status: Acute - Respiratory Orders Smoking Cessation: Smoking cessation has been advised. For more information, call the [employer] Quit Line at 8-525-PCSZ-NOW. - Diet/Nutrition Diet/Nutrition Orders: Cardiac - Activity Activity Orders: Ambulate - Services Needed Following services are medically necessary services: Home Health Aide, Physical Therapy, Occupational Therapy - Transfer Medications Prescriptions: cephALEXin [Keflex] 500 mg PO BID 7 Days #14 capsule predniSONE [PredniSONE] 40 mg PO DAILY 5 Days #10 tablet Home Medications: Albuterol Sulfate [Proair Hfa] 1 puff IH Q4-6H PRN 06/19/18 [History] Chlorpheniramine/Dextromethorp [Coricidin Hbp Cough & Cold Tab] 1 tab PO PER PKG DI PRN 06/19/18 [History] Cholecalciferol (D-3) [Vitamin D] 2,000 unit PO DAILY 06/19/18 [History] Lisinopril [Zestril] 5 mg PO DAILY 06/19/18 [History] Lovastatin [Mevacor] 20 mg PO DAILY 06/19/18 [History] Meclizine HCl [Verticalm] 25 mg PO Q8H PRN 06/19/18 [History] Multivitamin [One Daily Multivitamin] 1 tab PO DAILY 06/19/18 [History] [place]-3 Fatty Acids/Fish Oil [Eql Fish Oil 1,200 mg Softgel] 1 cap PO DAILY 06/19/18 [History] cephALEXin [Keflex] 500 mg PO BID 7 Days #14 capsule 06/22/18 [Rx] predniSONE [PredniSONE] 40 mg PO DAILY 5 Days #10 tablet 11/28/18 [Rx] Allergies/Adverse Reactions: Allergy/AdvReac Type Severity Reaction Status Date / Time No Known Allergies Allergy Verified 10/24/15 07:21 Certification: Further, I certify that my clinical findings support that this patient is homebound (i.e. absences from home require considerable and taxing effort and are for medical reasons or yazidism services or infrequently or short duration when for other reasons) because: Homebound Reason: Patient requires assistance of a person or device to safely leave home Attestation: My signature below is to certify that this patient is under my care and that I, or nurse practitioner, or a physician's yard assistant working with me, has a [id number] encounter with this patient.
--- NOTE | 2018-06-22 13:14 | Electrocardiograph Report ---
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
== END 2018-06-22 11:50 | disposition home or self-care (01) | DRG 871 ==
LOC: 3BNU 14:02 → EMEROOARM 14:02 → SUATTDRO 15:43 → 3BNU 16:16 → SUATTDRO 06-20 17:20
PROVIDERS: ADMIT Hospitalist; ATTEND Nurse Practitioner

== ENCOUNTER 2020-11-22 12:01 | Observation (INO) ==
[2020-11-22 13:04] LABS: Bilirubin,Urine Negative (Negative); Blood,Urine Negative (Negative); Clarity,Urine Clear (Clear); Color,Urine Light-Yellow (Yellow); Glucose,Urine (UA) Normal (Normal); Ketones,Urine Negative (Negative); Leukocyte Esterase,Urine Negative (Negative); Nitrite,Urine Negative (Negative); Protein,Urine Negative (Neg-Trace); Specific Gravity,Urine 1.018 (1.010-1.025); Urobilinogen,Urine Normal (Normal)
[2020-11-22 13:26] LABS: Basophils % 0.5 %; Eosinophils % 0.4 %; Hematocrit 38.6 % (37.5-50.1); Hemoglobin 12.7 g/dL (12.9-16.9); Immature Granulocytes % 0.5 % (0-4); Lymphocytes # 1.1 K/mcL (0.6-4.6); Lymphocytes % 13.9 %; Mean Corpuscular HGB Conc 32.9 g/dL (31.6-35.5); Mean Corpuscular Hemoglobin 32.5 pg (28.0-33.3); Mean Corpuscular Volume 98.7 fL (83.0-100.0); Mean Platelet Volume 10.6 fL (9.4-12.4); Monocytes # 0.5 K/mcL (0.0-1.3); Monocytes % 6.6 %; Neutrophils # 6.1 K/mcL (1.6-8.9); Platelet Count 179 K/mcL (140-400); Red Blood Count 3.91 M/mcL (4.19-5.50); Red Cell Distribution Width 12.5 % (11.5-14.5); Segmented Neutrophils % 78.1 %; White Blood Count 7.8 K/mcL (4.3-11.1)
[2020-11-22 13:29] LABS: VBG Ionized Calcium 1.22 mmol/L (1.15-1.35)
[2020-11-22 13:57] LABS: BUN/Creatinine Ratio 25 (6-26); Blood Urea Nitrogen 24 mg/dL (8-23); Calcium 9.3 mg/dL (8.6-10.3); Carbon Dioxide 25 mEq/L (23-29); Chloride 105 mEq/L (98-107); Creatine Kinase 166 Units/L (30-223); Glucose 106 mg/dL (70-105); Magnesium 1.9 mg/dL (1.6-2.6); Osmolality,Calculated 290 (280-300); Phosphorous 2.6 mg/dL (2.7-4.5); Potassium 4.6 mEq/L (3.5-5.1); Sodium 138 mEq/L (136-145); Troponin I < 0.03 ng/mL (< 0.04); eGFR For African Americans > 60 (> 60); eGFR For Non-African Americans > 60 (> 60)
[2020-11-22 14:02] LABS: Thyroid Stimulating Hormone 1.912 mcIU/mL (0.340-5.600)
[2020-11-22] MEDS ORDERED: Naloxone 0.4 MG/ML INJ IVP PRN (14:42)
[2020-11-22] MEDS ORDERED: Isovue-370 500 ML BOTTLE IVP ONE (15:21)
[2020-11-22] MEDS ORDERED: Perflutren Lipid Microsphere 1.3 ML in 0.9 % Sodium Chloride 8.7 ML IVP PRN (15:22)
[2020-11-22] MEDS ORDERED: Aspirin 325 MG TABLET PO ONE (15:23)
[2020-11-22] MEDS ORDERED: Ipratropium/Albuterol Neb 3 ML IH PRN (15:25)
[2020-11-22 15:42] LABS: Folate > 22.3 ng/mL (3.0-16.0); Vitamin B12 368 pg/mL (250-1100)
[2020-11-22] MEDS: *HR* Heparin 5,000 UNIT/ML VIAL SQ SCH (16:24)
[2020-11-23] MEDS: *HR* Heparin 5,000 UNIT/ML VIAL SQ SCH (06:10)
[2020-11-23 06:31] LABS: Chol/HDL Ratio 2.5 (0-4.9); Chol/HDL Ratio 2.6 (0-4.9)
[2020-11-23 06:46] LABS: Estimated Average Glucose 123 mg/dl; Hemoglobin A1C 5.9 %
[2020-11-23 07:11] VITALS: BP 157/83
[2020-11-23] MEDS ORDERED: Aspirin 81 MG TAB.CHEW PO SCH (09:00)
== END 2020-11-23 12:06 | disposition home or self-care (01) ==
LOC: EMEROOARM 12:01 → 3BNU 12:01 → SUATTDRO 14:35 → 3BNU 14:57
PROVIDERS: ADMIT Internal Medicine; ATTEND Internal Medicine

== ENCOUNTER 2021-01-24 16:38 | Inpatient (IN) ==
[2021-01-24] MEDS ORDERED: 0.9 % Sodium Chloride 1,000 ML IVC ONE (17:35)
[2021-01-24] MEDS ORDERED: methylPREDNISolone 125 MG/2 ML VIAL IVP ONE (17:36)
[2021-01-24] MEDS ORDERED: Ipratropium/Albuterol Neb 3 ML IH ONE (17:36)
[2021-01-24 18:13] LABS: Basophils # 0.1 K/mcL (0.0-0.2); Basophils % 0.3 %; Eosinophils % 0.1 %; Hematocrit 39.7 % (37.5-50.1); Hemoglobin 13.3 g/dL (12.9-16.9); Immature Granulocytes % 0.4 % (0-4); Lymphocytes # 1.5 K/mcL (0.6-4.6); Lymphocytes % 7.2 %; Mean Corpuscular HGB Conc 33.5 g/dL (31.6-35.5); Mean Corpuscular Volume 98.5 fL (83.0-100.0); Mean Platelet Volume 10.7 fL (9.4-12.4); Monocytes # 1.2 K/mcL (0.0-1.3); Monocytes % 5.5 %; Neutrophils # 18.2 K/mcL (1.6-8.9); Platelet Count 177 K/mcL (140-400); Red Blood Count 4.03 M/mcL (4.19-5.50); Red Cell Distribution Width 12.4 % (11.5-14.5); Segmented Neutrophils % 86.5 %
[2021-01-24 18:38] LABS: Alanine Aminotransferase 26 Units/L (7-52); Albumin 4.2 g/dL (3.5-5.7); Albumin/Globulin Ratio 1.6 (1.1-2.2); Alkaline Phosphatase 62 Units/L (34-104); Aspartate Amino Transferase 24 Units/L (13-39); BUN/Creatinine Ratio 23 (6-26); Bilirubin,Direct 0.1 mg/dL (0.0-0.2); Bilirubin,Indirect 0.4 mg/dL (0.0-1.0); Bilirubin,Total 0.5 mg/dL (0.3-1.0); Blood Urea Nitrogen 23 mg/dL (8-23); Calcium 9.1 mg/dL (8.6-10.3); Carbon Dioxide 23 mEq/L (23-29); Chloride 102 mEq/L (98-107); Globulin 2.6 g/dL (2.4-3.5); Glucose 159 mg/dL (70-105); Osmolality,Calculated 295 (280-300); Potassium 4.1 mEq/L (3.5-5.1); Sodium 139 mEq/L (136-145); Total Protein 6.8 g/dL (6.4-8.9); eGFR For African Americans > 60 (> 60); eGFR For Non-African Americans > 60 (> 60)
[2021-01-24 18:45] LABS: Troponin I < 0.03 ng/mL (< 0.04)
[2021-01-24 18:49] LABS: INR 1.1; Prothrombin Time 12.9 Seconds (9.4-12.1)
[2021-01-24 18:52] LABS: Activated Partial Thrombo Time 23.4 Seconds (26.0-36.0)
[2021-01-24 19:31] LABS: Bilirubin,Urine Negative (Negative); Blood,Urine Negative (Negative); Clarity,Urine Clear (Clear); Color,Urine Light-Yellow (Yellow); Glucose,Urine (UA) Normal (Normal); Ketones,Urine 10 mg/dL (Negative); Leukocyte Esterase,Urine Negative (Negative); Nitrite,Urine Negative (Negative); PH,Urine 6.5 pH Units (5.0-8.0); Protein,Urine Trace mg/dL (Neg-Trace); Specific Gravity,Urine 1.018 (1.010-1.025); Urobilinogen,Urine Normal (Normal)
[2021-01-24] MEDS ORDERED: Azithromycin 500 MG in 0.9 % Sodium Chloride 250 ML IVPB ONE (19:50)
[2021-01-24] MEDS: cefTRIAXone 2,000 MG in Water for inj. (sterile) 20 ML IVP SCH (21:34)
[2021-01-24] MEDS ORDERED: Perflutren Lipid Microsphere 1.3 ML in 0.9 % Sodium Chloride 8.7 ML IVP PRN (21:43)
[2021-01-24] MEDS ORDERED: Naloxone 0.4 MG/ML INJ IVP PRN (21:48)
[2021-01-24] MEDS ORDERED: Acetaminophen 325 MG TABLET PO PRN (21:48)
[2021-01-24] MEDS ORDERED: Prochlorperazine 10 MG/2 ML VIAL IVP PRN (21:51)
[2021-01-24 21:54] LABS: Adenovirus Not Detected (Not Detect); Bordetella Pertussis Not Detected (Not Detect); Chlamydophila pneumoniae Not Detected (Not Detect); Coronavirus 229E Not Detected (Not Detect); Coronavirus HKU1 Not Detected (Not Detect); Coronavirus NL63 Not Detected (Not Detect); Coronavirus OC43 Not Detected (Not Detect); Human Metapneumovirus Not Detected (Not Detect); Human Rhinovirus/Enterovirus Not Detected (Not Detect); Influenza A Subtype 2009 H1 Not Detected (Not Detect); Influenza B Not Detected (Not Detect); Mycoplasma pneumoniae Not Detected (Not Detect); Parainfluenza Virus 1 Not Detected (Not Detect); Parainfluenza Virus 2 Not Detected (Not Detect); Parainfluenza Virus 3 Not Detected (Not Detect); Parainfluenza Virus 4 Not Detected (Not Detect); Respiratory Syncytial Virus Not Detected (Not Detect); SARS-CoV-2 Not Detected (Not Detect)
[2021-01-24] MEDS: Levalbuterol Neb 1.25 MG/3 ML IH SCH (22:31)
[2021-01-25] MEDS: Levalbuterol Neb 1.25 MG/3 ML IH SCH ×4 (04:45→22:03)
[2021-01-25] MEDS: *HR* Heparin 5,000 UNIT/ML VIAL SQ SCH ×3 (05:25→21:37)
[2021-01-25 06:54] LABS: Hematocrit 36.3 % (37.5-50.1); Hemoglobin 12.3 g/dL (12.9-16.9); Mean Corpuscular HGB Conc 33.9 g/dL (31.6-35.5); Mean Corpuscular Hemoglobin 33.2 pg (28.0-33.3); Mean Corpuscular Volume 98.1 fL (83.0-100.0); Mean Platelet Volume 10.1 fL (9.4-12.4); Platelet Count 151 K/mcL (140-400); Red Cell Distribution Width 12.6 % (11.5-14.5); White Blood Count 22.7 K/mcL (4.3-11.1)
[2021-01-25 07:46] LABS: BUN/Creatinine Ratio 19 (6-26); Blood Urea Nitrogen 18 mg/dL (8-23); Calcium 8.6 mg/dL (8.6-10.3); Carbon Dioxide 22 mEq/L (23-29); Chloride 107 mEq/L (98-107); Cholesterol 122 mg/dL (< 200); Ferritin 240 ng/mL (20-250); Glucose 194 mg/dL (70-105); HDL Cholesterol 62 mg/dL (40-59); Iron < 10 mcg/dL (65-175); LDL Cholesterol,Calculated 52 mg/dL (< 100); Magnesium 1.7 mg/dL (1.6-2.6); Osmolality,Calculated 293 (280-300); Potassium 3.9 mEq/L (3.5-5.1); Sodium 138 mEq/L (136-145); Transferrin 190 mg/dL (203-362); Triglycerides 40 mg/dL (< 150); eGFR For African Americans > 60 (> 60); eGFR For Non-African Americans > 60 (> 60)
[2021-01-25 08:24] LABS: Troponin I 0.12 ng/mL (< 0.04)
[2021-01-25] MEDS: lisinopriL 5 MG TABLET PO SCH (09:44)
[2021-01-25] MEDS: Aspirin Enteric Coated 81 MG Tablet PO SCH (09:44)
[2021-01-25] MEDS: Cholecalciferol (D-3) 1,000 UNIT (25MCG) TABLET PO SCH (09:44)
[2021-01-25 10:27] LABS: Folate 14.9 ng/mL (3.0-16.0)
[2021-01-25 12:07] LABS: Prostate Specific Antigen 16.95 ng/mL (Less than 4.00)
[2021-01-25] MEDS: cefTRIAXone 2,000 MG in Water for inj. (sterile) 20 ML IVP SCH (21:36)
[2021-01-25] MEDS: Azithromycin 500 MG in 0.9 % Sodium Chloride 250 ML IVPB SCH (21:36)
[2021-01-26] MEDS: Levalbuterol Neb 1.25 MG/3 ML IH SCH ×4 (04:30→21:51)
[2021-01-26 05:26] LABS: Hematocrit 35.1 % (37.5-50.1); Hemoglobin 12.1 g/dL (12.9-16.9); Mean Corpuscular HGB Conc 34.5 g/dL (31.6-35.5); Mean Corpuscular Volume 98.6 fL (83.0-100.0); Mean Platelet Volume 10.6 fL (9.4-12.4); Platelet Count 145 K/mcL (140-400); Red Blood Count 3.56 M/mcL (4.19-5.50); Red Cell Distribution Width 12.8 % (11.5-14.5); White Blood Count 17.1 K/mcL (4.3-11.1)
[2021-01-26] MEDS: *HR* Heparin 5,000 UNIT/ML VIAL SQ SCH ×3 (05:36→20:55)
[2021-01-26 05:49] LABS: BUN/Creatinine Ratio 23 (6-26); Blood Urea Nitrogen 23 mg/dL (8-23); Calcium 8.8 mg/dL (8.6-10.3); Carbon Dioxide 25 mEq/L (23-29); Chloride 108 mEq/L (98-107); Glucose 131 mg/dL (70-105); Osmolality,Calculated 291 (280-300); Sodium 138 mEq/L (136-145); eGFR For African Americans > 60 (> 60); eGFR For Non-African Americans > 60 (> 60)
[2021-01-26] MEDS: lisinopriL 5 MG TABLET PO SCH (08:24)
[2021-01-26] MEDS: Cholecalciferol (D-3) 1,000 UNIT (25MCG) TABLET PO SCH (08:24)
[2021-01-26] MEDS: Multivit/Ca/Min/Fe/FA 1 TAB TABLET PO SCH (08:24)
[2021-01-26] MEDS: Aspirin Enteric Coated 81 MG Tablet PO SCH (08:24)
[2021-01-26] MEDS: cefTRIAXone 2,000 MG in Water for inj. (sterile) 20 ML IVP SCH (20:53)
[2021-01-26] MEDS: Azithromycin 500 MG in 0.9 % Sodium Chloride 250 ML IVPB SCH (20:54)
[2021-01-27] MEDS: Levalbuterol Neb 1.25 MG/3 ML IH SCH ×2 (04:07→07:50)
[2021-01-27 06:04] LABS: Basophils % 0.2 %; Eosinophils % 0.2 %; Hematocrit 34.1 % (37.5-50.1); Hemoglobin 11.2 g/dL (12.9-16.9); Immature Granulocytes % 0.8 % (0-4); Lymphocytes # 0.8 K/mcL (0.6-4.6); Lymphocytes % 5.7 %; Mean Corpuscular HGB Conc 32.8 g/dL (31.6-35.5); Mean Corpuscular Hemoglobin 32.7 pg (28.0-33.3); Mean Corpuscular Volume 99.7 fL (83.0-100.0); Mean Platelet Volume 10.5 fL (9.4-12.4); Monocytes # 0.8 K/mcL (0.0-1.3); Monocytes % 6.1 %; Neutrophils # 11.5 K/mcL (1.6-8.9); Platelet Count 146 K/mcL (140-400); Red Blood Count 3.42 M/mcL (4.19-5.50); Red Cell Distribution Width 12.7 % (11.5-14.5); White Blood Count 13.3 K/mcL (4.3-11.1)
[2021-01-27] MEDS: *HR* Heparin 5,000 UNIT/ML VIAL SQ SCH (06:04)
[2021-01-27 06:21] LABS: BUN/Creatinine Ratio 23 (6-26); Blood Urea Nitrogen 21 mg/dL (8-23); Calcium 8.7 mg/dL (8.6-10.3); Carbon Dioxide 27 mEq/L (23-29); Chloride 107 mEq/L (98-107); Glucose 137 mg/dL (70-105); Osmolality,Calculated 293 (280-300); Sodium 139 mEq/L (136-145); eGFR For African Americans > 60 (> 60); eGFR For Non-African Americans > 60 (> 60)
[2021-01-27 07:50] VITALS: BP 138/75
[2021-01-27] MEDS: Cholecalciferol (D-3) 1,000 UNIT (25MCG) TABLET PO SCH (09:29)
[2021-01-27] MEDS: lisinopriL 5 MG TABLET PO SCH (09:29)
[2021-01-27] MEDS: Aspirin Enteric Coated 81 MG Tablet PO SCH (09:29)
[2021-01-27] MEDS: Multivit/Ca/Min/Fe/FA 1 TAB TABLET PO SCH (09:29)
[2021-01-28 13:45] LABS: Estimated Average Glucose 123 mg/dl; Hemoglobin A1C 5.9 %
== END 2021-01-27 10:48 | disposition home or self-care (01) | DRG 871 ==
LOC: 2ANU 16:38 → EMEROOARM 16:38 → SUATTDRO 21:07 → 2ANU 22:29
PROVIDERS: ADMIT Student in an Organized Health Care Education/Training Program; ATTEND Family Medicine

== ENCOUNTER 2021-08-19 15:40 | Inpatient (IN) ==
[2021-08-19 17:51] LABS: Basophils % 0.4 %; Eosinophils % 0.9 %; Hematocrit 40.5 % (37.5-50.1); Hemoglobin 13.1 g/dL (12.9-16.9); Immature Granulocytes % 1.1 % (0-4); Lymphocytes # 1.1 K/mcL (0.6-4.6); Lymphocytes % 25.2 %; Mean Corpuscular HGB Conc 32.3 g/dL (31.6-35.5); Mean Platelet Volume 10.2 fL (9.4-12.4); Monocytes # 0.5 K/mcL (0.0-1.3); Monocytes % 11.9 %; Neutrophils # 2.7 K/mcL (1.6-8.9); Platelet Count 185 K/mcL (140-400); Red Blood Count 4.09 M/mcL (4.19-5.50); Red Cell Distribution Width 12.8 % (11.5-14.5); Segmented Neutrophils % 60.5 %; White Blood Count 4.5 K/mcL (4.3-11.1)
[2021-08-19 17:58] LABS: Alanine Aminotransferase 19 Units/L (7-52); Albumin 3.8 g/dL (3.5-5.7); Albumin/Globulin Ratio 1.4 (1.1-2.2); Alkaline Phosphatase 85 Units/L (34-104); Aspartate Amino Transferase 30 Units/L (13-39); BUN/Creatinine Ratio 20 (6-26); Bilirubin,Total 0.5 mg/dL (0.3-1.0); Blood Urea Nitrogen 22 mg/dL (8-23); Carbon Dioxide 29 mEq/L (23-29); Chloride 103 mEq/L (98-107); Globulin 2.7 g/dL (2.4-3.5); Glucose 123 mg/dL (70-105); Magnesium 2.1 mg/dL (1.6-2.6); Osmolality,Calculated 291 (280-300); Potassium 4.5 mEq/L (3.5-5.1); Sodium 138 mEq/L (136-145); Total Protein 6.5 g/dL (6.4-8.9); eGFR For African Americans > 60 (> 60); eGFR For Non-African Americans > 60 (> 60)
[2021-08-19] MEDS ORDERED: Ipratropium/Albuterol Neb 3 ML IH ONE ×2 (17:59→22:39)
[2021-08-19 18:18] LABS: Prothrombin Time 11.1 Seconds (9.4-12.1)
[2021-08-19 18:21] LABS: Activated Partial Thrombo Time 30.1 Seconds (26.0-36.0)
[2021-08-19 18:30] LABS: VBG HCO3 30 mEq/L (21-27); VBG PCO2 56 mmHg (41-51); VBG PH 7.34 pH Units (7.32-7.42); VBG PO2 33 mmHg (25-50)
[2021-08-19 18:31] LABS: Troponin I 0.04 ng/mL (< 0.04)
[2021-08-19 19:03] LABS: Influenza A PCR Negative (Negative); Influenza B PCR Negative (Negative); Resp. Syncytial Virus PCR Negative (Negative)
[2021-08-19 19:06] LABS: SARS-CoV-2 by PCR (In House) Positive (Negative)
[2021-08-19] MEDS ORDERED: Dexamethasone Sodium Phos/PF 10 MG/ML VIAL IVP ONE (22:39)
[2021-08-19] MEDS ORDERED: Naloxone 0.4 MG/ML INJ IVP PRN (23:36)
[2021-08-19] MEDS ORDERED: Melatonin 3 MG TABLET PO PRN (23:36)
[2021-08-20] MEDS ORDERED: *HR* LORazepam 2 MG/ML VIAL IVP ONE (00:21)
[2021-08-20 02:37] LABS: Bilirubin,Urine Negative (Negative); Blood,Urine Trace (Negative); Clarity,Urine Clear (Clear); Color,Urine Light-Yellow (Yellow); Glucose,Urine (UA) Normal (Normal); Ketones,Urine Negative (Negative); Leukocyte Esterase,Urine Negative (Negative); Mucus,Urine Few per lpf (None-Few); Nitrite,Urine Negative (Negative); Protein,Urine 30 mg/dL (Neg-Trace); RBC,Urine 0-3 per hpf (0-3); Specific Gravity,Urine 1.021 (1.010-1.025); Urobilinogen,Urine Normal (Normal); WBC,Urine 0-3 per hpf (0-3)
[2021-08-20 03:30] LABS: Hematocrit 36.1 % (37.5-50.1); Mean Corpuscular HGB Conc 33.2 g/dL (31.6-35.5); Mean Corpuscular Hemoglobin 32.3 pg (28.0-33.3); Mean Platelet Volume 9.8 fL (9.4-12.4); Platelet Count 177 K/mcL (140-400); Red Blood Count 3.72 M/mcL (4.19-5.50); Red Cell Distribution Width 12.7 % (11.5-14.5); White Blood Count 6.8 K/mcL (4.3-11.1)
[2021-08-20 03:59] LABS: Albumin 3.4 g/dL (3.5-5.7); Albumin/Globulin Ratio 1.4 (1.1-2.2); Bilirubin,Direct 0.1 mg/dL (0.0-0.2); Bilirubin,Indirect 0.5 mg/dL (0.0-1.0); Bilirubin,Total 0.6 mg/dL (0.3-1.0); Globulin 2.5 g/dL (2.4-3.5); Total Protein 5.9 g/dL (6.4-8.9)
[2021-08-20 04:13] LABS: BUN/Creatinine Ratio 20 (6-26); Blood Urea Nitrogen 17 mg/dL (8-23); Calcium 8.4 mg/dL (8.6-10.3); Carbon Dioxide 26 mEq/L (23-29); Chloride 106 mEq/L (98-107); Glucose 144 mg/dL (70-105); Magnesium 1.8 mg/dL (1.6-2.6); Osmolality,Calculated 288 (280-300); Phosphorous 2.5 mg/dL (2.7-4.5); Potassium 3.8 mEq/L (3.5-5.1); Sodium 137 mEq/L (136-145); Troponin I 0.05 ng/mL (< 0.04); eGFR For African Americans > 60 (> 60); eGFR For Non-African Americans > 60 (> 60)
[2021-08-20] MEDS: Ipratropium 1 PUFF INHALER IH SCH ×4 (04:18→21:14)
[2021-08-20] MEDS: *HR* Enoxaparin 40 MG/0.4 ML SYRINGE SQ SCH (05:33)
[2021-08-20] MEDS ORDERED: Remdesivir 200 MG in 0.9 % Sodium Chloride 100 ML IVPB ONE (08:30)
[2021-08-20] MEDS ORDERED: Dexamethasone Sodium Phos/PF 10 MG/ML VIAL IVP SCH (09:00)
[2021-08-20] MEDS: Dexamethasone Sodium Phos/PF 10 MG/ML VIAL IVP SCH (09:10)
[2021-08-20] MEDS ORDERED: Benzonatate 100 MG CAPSULE PO PRN (11:15)
[2021-08-20] MEDS: Haloperidol Lactate 5 MG/ML VIAL IVP PRN (16:51)
[2021-08-21 03:57] LABS: Basophils % 0.2 %; Hematocrit 38.1 % (37.5-50.1); Immature Granulocytes % 0.7 % (0-4); Lymphocytes # 0.7 K/mcL (0.6-4.6); Lymphocytes % 5.2 %; Mean Corpuscular HGB Conc 34.1 g/dL (31.6-35.5); Mean Corpuscular Hemoglobin 32.5 pg (28.0-33.3); Mean Corpuscular Volume 95.3 fL (83.0-100.0); Mean Platelet Volume 9.6 fL (9.4-12.4); Monocytes % 7.4 %; Neutrophils # 11.4 K/mcL (1.6-8.9); Platelet Count 221 K/mcL (140-400); Red Cell Distribution Width 12.6 % (11.5-14.5); Segmented Neutrophils % 86.5 %; White Blood Count 13.2 K/mcL (4.3-11.1)
[2021-08-21] MEDS: Ipratropium 1 PUFF INHALER IH SCH ×4 (04:05→20:24)
[2021-08-21 04:19] LABS: BUN/Creatinine Ratio 24 (6-26); Blood Urea Nitrogen 21 mg/dL (8-23); Calcium 8.9 mg/dL (8.6-10.3); Carbon Dioxide 31 mEq/L (23-29); Chloride 104 mEq/L (98-107); Glucose 127 mg/dL (70-105); Osmolality,Calculated 295 (280-300); Potassium 4.2 mEq/L (3.5-5.1); Sodium 140 mEq/L (136-145); eGFR For African Americans > 60 (> 60); eGFR For Non-African Americans > 60 (> 60)
[2021-08-21 04:21] LABS: Albumin 3.2 g/dL (3.5-5.7); Albumin/Globulin Ratio 1.2 (1.1-2.2); Bilirubin,Direct 0.1 mg/dL (0.0-0.2); Bilirubin,Indirect 0.4 mg/dL (0.0-1.0); Bilirubin,Total 0.5 mg/dL (0.3-1.0); Globulin 2.7 g/dL (2.4-3.5); Total Protein 5.9 g/dL (6.4-8.9)
[2021-08-21] MEDS: *HR* Enoxaparin 40 MG/0.4 ML SYRINGE SQ SCH (07:07)
[2021-08-21] MEDS: Remdesivir 100 MG in 0.9 % Sodium Chloride 100 ML IVPB SCH (08:04)
[2021-08-21] MEDS: Dexamethasone Sodium Phos/PF 10 MG/ML VIAL IVP SCH (08:05)
[2021-08-21] MEDS: Haloperidol Lactate 5 MG/ML VIAL IVP PRN ×2 (11:35→23:49)
[2021-08-21] MEDS ORDERED: Haloperidol Lactate 5 MG/ML VIAL IVP ONE (12:57)
[2021-08-22 00:59] LABS: ABG Base Excess 0 mEq/L (-2 to 3); ABG HCO3 23 mEq/L (21-27); ABG Oxygen Saturation 91 % (95-98); ABG PCO2 33 mmHg (35-45); ABG PH 7.45 pH Units (7.32-7.45); ABG PO2 58 mmHg (85-104); ABG TCO2 24 mEq/L (20-26)
[2021-08-22] MEDS ORDERED: *HR* LORazepam 2 MG/ML VIAL IVP ONE (01:19)
[2021-08-22] MEDS: Ipratropium 1 PUFF INHALER IH SCH ×4 (04:04→20:19)
[2021-08-22 05:25] LABS: Hematocrit 41.5 % (37.5-50.1); Mean Corpuscular Hemoglobin 32.7 pg (28.0-33.3); Mean Corpuscular Volume 96.3 fL (83.0-100.0); Mean Platelet Volume 9.9 fL (9.4-12.4); Platelet Count 303 K/mcL (140-400); Red Blood Count 4.31 M/mcL (4.19-5.50); Red Cell Distribution Width 12.8 % (11.5-14.5)
[2021-08-22 05:28] LABS: Hemoglobin 14.1 g/dL (12.9-16.9); White Blood Count 23.1 K/mcL (4.3-11.1)
[2021-08-22 05:45] LABS: Albumin 3.8 g/dL (3.5-5.7); Albumin/Globulin Ratio 1.4 (1.1-2.2); Bilirubin,Direct 0.3 mg/dL (0.0-0.2); Bilirubin,Indirect 0.7 mg/dL (0.0-1.0); Globulin 2.8 g/dL (2.4-3.5); Total Protein 6.6 g/dL (6.4-8.9)
[2021-08-22 05:48] LABS: Calcium 9.1 mg/dL (8.6-10.3); Potassium 4.1 mEq/L (3.5-5.1)
[2021-08-22] MEDS: *HR* Enoxaparin 40 MG/0.4 ML SYRINGE SQ SCH (06:13)
[2021-08-22] MEDS ORDERED: 0.9 % Sodium Chloride 1,000 ML IVC SCH (07:45)
[2021-08-22] MEDS: Remdesivir 100 MG in 0.9 % Sodium Chloride 100 ML IVPB SCH (08:24)
[2021-08-22] MEDS: Dexamethasone Sodium Phos/PF 10 MG/ML VIAL IVP SCH (08:25)
[2021-08-22] MEDS: Haloperidol Lactate 5 MG/ML VIAL IVP PRN (09:30)
[2021-08-22] MEDS ORDERED: Haloperidol Lactate 5 MG/ML VIAL IM ONE (12:50)
[2021-08-22] MEDS ORDERED: Haloperidol Lactate 5 MG/ML VIAL IVP PRN (16:11)
[2021-08-22] MEDS: *HR* LORazepam 2 MG/ML VIAL IVP PRN (22:54)
[2021-08-23] MEDS: Ipratropium 1 PUFF INHALER IH SCH ×4 (03:35→21:02)
[2021-08-23] MEDS: *HR* Enoxaparin 40 MG/0.4 ML SYRINGE SQ SCH (06:28)
[2021-08-23 07:52] LABS: Basophils # 0.1 K/mcL (0.0-0.2); Basophils % 0.4 %; Hematocrit 39.2 % (37.5-50.1); Hemoglobin 13.3 g/dL (12.9-16.9); Immature Granulocytes % 1.4 % (0-4); Lymphocytes # 0.6 K/mcL (0.6-4.6); Lymphocytes % 3.4 %; Mean Corpuscular HGB Conc 33.9 g/dL (31.6-35.5); Mean Corpuscular Hemoglobin 32.8 pg (28.0-33.3); Mean Corpuscular Volume 96.6 fL (83.0-100.0); Monocytes # 1.3 K/mcL (0.0-1.3); Monocytes % 7.4 %; Neutrophils # 14.7 K/mcL (1.6-8.9); Platelet Count 240 K/mcL (140-400); Red Blood Count 4.06 M/mcL (4.19-5.50); Red Cell Distribution Width 12.8 % (11.5-14.5); Segmented Neutrophils % 87.4 %; White Blood Count 16.8 K/mcL (4.3-11.1)
[2021-08-23 08:09] LABS: BUN/Creatinine Ratio 33 (6-26); Blood Urea Nitrogen 36 mg/dL (8-23); Carbon Dioxide 28 mEq/L (23-29); Chloride 107 mEq/L (98-107); Glucose 116 mg/dL (70-105); Osmolality,Calculated 307 (280-300); Potassium 3.9 mEq/L (3.5-5.1); Sodium 144 mEq/L (136-145); eGFR For African Americans > 60 (> 60); eGFR For Non-African Americans > 60 (> 60)
[2021-08-23 08:10] LABS: Albumin 3.4 g/dL (3.5-5.7); Albumin/Globulin Ratio 1.2 (1.1-2.2); Bilirubin,Direct 0.2 mg/dL (0.0-0.2); Bilirubin,Indirect 0.6 mg/dL (0.0-1.0); Bilirubin,Total 0.8 mg/dL (0.3-1.0); Globulin 2.9 g/dL (2.4-3.5); Total Protein 6.3 g/dL (6.4-8.9)
[2021-08-23] MEDS: Remdesivir 100 MG in 0.9 % Sodium Chloride 100 ML IVPB SCH (08:53)
[2021-08-23] MEDS: Dexamethasone Sodium Phos/PF 10 MG/ML VIAL IVP SCH (08:54)
[2021-08-23] MEDS: *HR* LORazepam 2 MG/ML VIAL IVP PRN (08:57)
[2021-08-23] MEDS ORDERED: *HR* LORazepam 2 MG/ML VIAL IVP PRN (12:58)
[2021-08-23] MEDS: Haloperidol Lactate 5 MG/ML VIAL IVP PRN (20:43)
[2021-08-24] MEDS: Haloperidol Lactate 5 MG/ML VIAL IVP PRN ×3 (02:18→21:24)
[2021-08-24] MEDS: Ipratropium 1 PUFF INHALER IH SCH ×4 (04:04→20:46)
[2021-08-24] MEDS: *HR* Enoxaparin 40 MG/0.4 ML SYRINGE SQ SCH (05:05)
[2021-08-24] MEDS: Remdesivir 100 MG in 0.9 % Sodium Chloride 100 ML IVPB SCH (10:15)
[2021-08-24] MEDS: Dexamethasone Sodium Phos/PF 10 MG/ML VIAL IVP SCH (10:16)
[2021-08-25] MEDS: Haloperidol Lactate 5 MG/ML VIAL IVP PRN (01:42)
[2021-08-25] MEDS: Ipratropium 1 PUFF INHALER IH SCH ×4 (04:01→20:37)
[2021-08-25] MEDS: *HR* Enoxaparin 40 MG/0.4 ML SYRINGE SQ SCH (05:47)
[2021-08-25 06:50] LABS: Basophils # 0.1 K/mcL (0.0-0.2); Basophils % 0.5 %; Eosinophils % 0.1 %; Hematocrit 42.3 % (37.5-50.1); Hemoglobin 14.1 g/dL (12.9-16.9); Immature Granulocytes % 1.8 % (0-4); Lymphocytes # 0.5 K/mcL (0.6-4.6); Lymphocytes % 2.4 %; Mean Corpuscular HGB Conc 33.3 g/dL (31.6-35.5); Mean Corpuscular Hemoglobin 32.5 pg (28.0-33.3); Mean Corpuscular Volume 97.5 fL (83.0-100.0); Monocytes # 1.7 K/mcL (0.0-1.3); Monocytes % 7.6 %; Neutrophils # 19.2 K/mcL (1.6-8.9); Platelet Count 271 K/mcL (140-400); Red Blood Count 4.34 M/mcL (4.19-5.50); Red Cell Distribution Width 12.8 % (11.5-14.5); Segmented Neutrophils % 87.6 %; White Blood Count 21.9 K/mcL (4.3-11.1)
[2021-08-25 07:18] LABS: Alanine Aminotransferase 36 Units/L (7-52); Albumin 3.1 g/dL (3.5-5.7); Alkaline Phosphatase 88 Units/L (34-104); Aspartate Amino Transferase 27 Units/L (13-39); BUN/Creatinine Ratio 40 (6-26); Bilirubin,Direct 0.2 mg/dL (0.0-0.2); Bilirubin,Indirect 0.6 mg/dL (0.0-1.0); Bilirubin,Total 0.8 mg/dL (0.3-1.0); Blood Urea Nitrogen 48 mg/dL (8-23); Calcium 9.5 mg/dL (8.6-10.3); Carbon Dioxide 30 mEq/L (23-29); Chloride 114 mEq/L (98-107); Globulin 3.2 g/dL (2.4-3.5); Glucose 149 mg/dL (70-105); Osmolality,Calculated 329 (280-300); Potassium 3.8 mEq/L (3.5-5.1); Sodium 152 mEq/L (136-145); Total Protein 6.3 g/dL (6.4-8.9); eGFR For African Americans > 60 (> 60); eGFR For Non-African Americans 57 (> 60)
[2021-08-25] MEDS: Dexamethasone Sodium Phos/PF 10 MG/ML VIAL IVP SCH (08:07)
[2021-08-25] MEDS: D5% in Water 1,000 ML IVC SCH (08:07)
[2021-08-26] MEDS: D5% in Water 1,000 ML IVC SCH (02:46)
[2021-08-26] MEDS: Ipratropium 1 PUFF INHALER IH SCH ×4 (04:06→20:31)
[2021-08-26] MEDS: *HR* Enoxaparin 40 MG/0.4 ML SYRINGE SQ SCH (05:14)
[2021-08-26] MEDS: Morphine Sulfate 2 MG/ML SYRINGE IVP PRN ×2 (11:41→17:02)
[2021-08-26] MEDS ORDERED: Haloperidol Lactate 5 MG/ML VIAL IVP SCH (12:00)
[2021-08-26] MEDS: Haloperidol Lactate 5 MG/ML VIAL IVP SCH ×2 (15:07→20:03)
[2021-08-26] MEDS ORDERED: Scopolamine Patch 1.5 MG PATCH.TD72 TD SCH (15:30)
[2021-08-26] MEDS: Glycopyrrolate 0.2 MG/ML VIAL IVP PRN (16:55)
[2021-08-27] MEDS: Morphine Sulfate 2 MG/ML SYRINGE IVP PRN ×2 (00:15→05:59)
[2021-08-27] MEDS: Glycopyrrolate 0.2 MG/ML VIAL IVP PRN (00:50)
[2021-08-27] MEDS: Ipratropium 1 PUFF INHALER IH SCH ×2 (04:20→07:31)
[2021-08-27 06:53] VITALS: BP 59/41; PULSE 97; TEMP 101.6
[2021-08-27 07:34] VITALS: O2SAT 89
[2021-08-27] MEDS ORDERED: Acetaminophen 650 MG RECTAL SUPP RC PRN (07:55)
== END 2021-08-27 10:25 | disposition expired | DRG 177 ==
LOC: 3ANU 15:40 → EMEROOARM 15:40 → SUATTDRO 08-20 00:53 → 3ANU 08-20 01:28
PROVIDERS: ADMIT Internal Medicine; ATTEND Internal Medicine